=== PATIENT | male | born 1980 | race Caucasian/White ===

== ENCOUNTER 2024-05-10 07:55 | Emergency (ER) | payer BC ==
[~2024-05-10] VITALS: Ht 185.4 cm; Wt 117.0 kg
[2024-05-10] VITALS (19 sets, daily range): BP systolic 139–204; BP diastolic 90–128
[~2024-05-10 07:55] MED LIST: HYZAAR1 TA2 PO; TOPROL XL50 MG PO
[2024-05-10] MEDS ORDERED: ENALAPRILAT 1.25 MG/ML 1ML IV ONE (08:20)
[2024-05-10 08:46] LABS: BASO% 0.1 % (0-3); EOS% 0.3 % (0-8); HEMATOCRIT 46.2 % (39.0-50.0); HEMOGLOBIN 15.3 g/dl (14.0-18.0); IMMATURE GRANULOCYTES 0.2 % (0.0-5.0); MEAN CELL VOLUME 90.9 fL CALC (80.0-100.0); MEAN CORPUSCULAR HGB 30.1 pG CALC (26.0-32.0); MEAN CORPUSCULAR HGB CONC 33.1 g/dL CAL (32.0-36.0); MONO% 3.9 % (2-13); NEUT# 7.58 thou/uL (1.82-7.42); NEUT% 80.5 % (42-76); RED BLOOD COUNT 5.08 mill/uL (4.70-6.10); RED CELL DISTRI WIDTH 12.2 % (11.5-15.5)
[2024-05-10 08:51] LABS: ALBUMIN 4.9 g/dL (3.2-5.0); ALKALINE PHOSPHATASE 59 u/l (38-126); BUN 17 mg/dL (9-20); BUN/CREATININE RATIO 22 (12-20 (CALC)); CARBON DIOXIDE 27 mmol/l (22-30); CHLORIDE 106 mmol/l (95-108); CREATININE 0.8 mg/dL (0.7-1.3); ESTIMATED GFR 111 ML/MIN (>=90 (CALC)); SGOT/AST 24 u/l (17-59); SODIUM 142 mmol/l (137-146)
[2024-05-10 09:00] LABS: URINE BILIRUBIN - DIPSTICK Negative (NEGATIVE); URINE BLOOD DIPSTICK Negative (NEGATIVE); URINE GLUCOSE - DIPSTICK Negative (NEGATIVE); URINE KETONE Negative (NEGATIVE); URINE LEUK ESTERASE Negative (NEGATIVE); URINE NITRITE - DIPSTICK Negative (Negative); URINE PROTEIN - DIPSTICK Negative (NEG-TRACE); URINE UROBILINOGEN - DIPSTICK 0.2 E.U./dL (0.2)
[2024-05-10 09:03] LABS: ANION GAP 13 (6-22 (CALC)); BILIRUBIN, TOTAL 0.7 mg/dL (0.2-1.3); POTASSIUM 4.1 mmol/l (3.5-5.1)
[2024-05-10 09:03] LABS: URINE COLOR Yellow
[2024-05-10] MEDS ORDERED: hydrALAZINE HCL 20 MG/ML VIAL(1 ML) IV ONE (09:05)
[2024-05-10] MEDS ORDERED: LOSARTAN POTASS50 MG PO (09:54)
== END 2024-05-10 10:15 | disposition home or self-care (01) | DRG 305 ==
LOC: ED 07:55
PROVIDERS: Emergency Medicine
DX: I16.0 Hypertensive urgency (principal); I10 Essential (primary) hypertension
CPT/HCPCS: J0360